=== PATIENT | female | born 1950 | race Caucasian/White ===

== ENCOUNTER 2021-03-06 06:58 | Emergency (ER) | payer MEDICARE ==
[~2021-03-06] VITALS: Ht 160 cm; Wt 81.2 kg
[2021-03-06] MEDS ORDERED: MORPHINE SULFATE 4 MG/ML, 1ML IVPush PRN (07:30)
[2021-03-06] MEDS ORDERED: ONDANSETRON 2MG/ML, 2ML IVPush ONE ×2 (07:30→11:30)
[2021-03-06] MEDS ORDERED: INSULIN (07:59)
[2021-03-06] MEDS ORDERED: HTN MED (07:59)
[2021-03-06] MEDS ORDERED: ONDANSETRON 2MG/ML, 2ML ONE ×2 (08:01→11:31)
[2021-03-06] MEDS ORDERED: MORPHINE SULFATE 4 MG/ML, 1ML ONE (08:02)
--- NOTE | 2021-03-06 08:04 | NUR ---
TASK RN NOTE: UPON ENTRY TO ROOM, PT WITH REMOTE CHANGING CHANNELS ON TELEVISION. NAD NOTED AT THIS TIME. PT RESPIRATIONS EVEN AND UNLABORED ON RA. PT PLEASANT WITH STAFF. IV START, LABS DRAWN, LABELLED AND SENT. MEDS ADMINISTERED PER EMAR.
[2021-03-06 08:15] LABS: MEAN CORPUSCULAR HEMOGLOBIN 27.8 pg (27.0-34.8); MEAN CORPUSCULAR HGB CONC 33.6 g/dL (32.4-35.8); MEAN PLATELET VOLUME 7.8 fL (7.4-10.4); PLATELET COUNT 216 x10^3/uL (130-400); RED BLOOD COUNT 5.19 x10^6/uL (3.82-5.3); RED CELL DISTRIBUTION WIDTH 14.3 % (9.6-15.2)
[2021-03-06 08:23] LABS: ALANINE AMINOTRANSFERASE 27 U/L (12-78); ALBUMIN 3.9 g/dL (3.4-5.0); ANION GAP 9 mmol/L (5-15); CALCIUM 8.4 mg/dL (8.5-10.1); CHLORIDE 109 mmol/L (98-107); CREATININE 0.61 mg/dL (0.55-1.02)
[2021-03-06 08:27] LABS: ALKALINE PHOSPHATASE 70 U/L (45-117); BILIRUBIN,TOTAL 1.1 mg/dL (0.2-1.0); TOTAL PROTEIN 8.1 g/dL (6.4-8.2); TROPONIN I < 0.015 ng/mL (0.000-0.045)
[2021-03-06] MEDS ORDERED: OMNIPAQUE 350 MG/ML, 100ML BOTTLE ONE (08:30)
[2021-03-06 08:37] LABS: <PLATELET ESTIMATE> ADEQUATE; <PLT MORPHOLOGY> NORMAL PLT MORPH; <RBC MORPHOLOGY> NORMAL; BAND#(MANUAL) 0.64 x10^3/uL; BANDS%(MANUAL) 5 % (0-7); LYMPH#(MANUAL) 0.38 x10^3/uL (1-3.4); LYMPHS% (MANUAL) 3 % (22-44); MONOS#(MANUAL) 0.64 x10^3/uL (0.3-2.7); MONOS% (MANUAL) 5 % (2-9); SEG#(MANUAL) 11.05 x10^3/uL (1.8-6.8); SEGS% (MANUAL) 87 % (42-75)
--- NOTE | 2021-03-06 08:58 | NUR ---
FIRST CONTACT WITH PT, ASSUME CARE AT THIS TIME. PT CAME BACK FROM CT. NAD
[2021-03-06 10:42] LABS: MICROSCOPIC AUTO
[2021-03-06 11:47] VITALS: BP 148/64
== END 2021-03-06 12:11 | disposition home or self-care (01) ==
LOC: ED 09:16
DX: R10.84 Generalized abdominal pain (principal); R11.2 Nausea with vomiting, unspecified; R19.7 Diarrhea, unspecified; I10 Essential (primary) hypertension; E11.9 Type 2 diabetes mellitus without complications; Z87.891 Personal history of nicotine dependence
CPT/HCPCS: 36415; 74177; 80053; 81001; 83690; 84484; 85025; 93005; 96374; 96375; 96376; 99285; J2270; J2405; Q9967